=== PATIENT | male | born 1995 | race Caucasian/White ===

== ENCOUNTER 2018-02-12 20:34 | Emergency (ER) | payer BC ==
[2018-02-12 21:03] VITALS: BP 114/65
--- NOTE | 2018-02-12 21:26 | UC ---
Hand/Wrist HPI - HPI Summary HPI Summary: Playing bran in soccer dove out for a ball and had left hand kicked - History Of Current Complaint Chief Complaint: UCUpperExtremity Stated Complaint: LEFT THUMB INJURY Time Seen by Provider: 02/12/18 21:20 Hx Obtained From: Patient Onset/Duration: Sudden Onset, Lasting Hours - 2 Severity Initially: Moderate Severity Currently: Mild Pain Intensity: 3 Character Of Pain: Dull, Aching, Throbbing Aggravating Factor(s): Movement Alleviating Factor(s): Rest Associated Signs And Symptoms: Positive: Swelling Related History: Dominant Hand Left - Allergies/Home Medications Allergies/Adverse Reactions: Allergies Allergy/AdvReac Type Severity Reaction Status Date / Time No Known Allergies Allergy Verified 02/12/18 21:03 Home Medications: Home Medications NK [No Home Medications Reported] 02/12/18 [History Confirmed 02/12/18] PMH/Surg Hx/FS Hx/Imm Hx Previously Healthy: Yes - Surgical History Surgical History: None - Family History Known Family History: Positive: Cardiac Disease - Social History Occupation: Employed Full-time Lives: Alone Alcohol Use: None Substance Use Type: None Smoking Status (MU): Never Smoked Tobacco Review of Systems Musculoskeletal: Arthralgia - left CMC Is Patient Immunocompromised?: No All Other Systems Reviewed And Are Negative: Yes Physical Exam Triage Information Reviewed: Yes Appearance: Well-Appearing, Well-Nourished, Pain Distress - with exam of thumb Vital Signs: Initial Vital Signs Temp 98.6 F 02/12/18 20:56 Pulse 86 02/12/18 20:56 Resp 16 02/12/18 20:56 BP 114/65 02/12/18 20:56 Pulse Ox 99 02/12/18 20:56 Vital Signs Reviewed: Yes Eyes: Positive: Conjunctiva Clear Neck exam: Normal Respiratory Exam: Normal Cardiovascular Exam: Normal Musculoskeletal: Positive: Strength Limited @ - left thumb, ROM Limited @ - Left thumb, Other: - CMC seems unstable with palpation. Neurological Exam: Normal Psychological Exam: Normal Skin Exam: Normal Hand/Wrist Course/Dx - Differential Dx/Diagnosis Differential Diagnosis/HQI/PQRI: Contusion, Dislocation, Fracture, Sprain, Strain Provider Diagnoses: left 1st metacarpal displaced fracture. Discharge - Sign-Out/Discharge Documenting (check all that apply): Patient Departure All imaging exams completed and their final reports reviewed: No - Discharge Plan Condition: Stable Disposition: HOME Patient Education Materials: Hand Fracture (ED) Referrals: No Primary Care Phys,NOPCP [Primary Care Provider] - Teresa Borrego MD [Medical Doctor] - 1 Day (Please get seen tomorrow about the fracture ? dislocation.) Additional Instructions: Keep hand in the splint until you see Dr. Borrego - Rosa Disposition and Condition Condition: STABLE Disposition: Home
--- NOTE | 2018-02-13 08:06 | RAD ---
INDICATION: Left thumb hyperextension injury after being kicked during soccer game COMPARISON: None. TECHNIQUE: 4 views of the left hand were obtained. FINDINGS: There is a minimally displaced fracture at the proximal ulnar corner of the left thumb metacarpal with the fracture fragment displaced distally and in the palmar direction. Remaining visualized bones are intact and appropriately aligned. IMPRESSION: Minimally displaced fracture at the proximal pole of the left thumb metacarpal. R0
--- NOTE | 2018-02-13 09:46 | UC ---
- Progress Note Progress Note: Patient Name: REANNA CHATTERJEE Medical Record#: [id number] Ordering Physician: David Pacheco MD Acct.#: [id number] : 1995 Age: 23 Sex: M Location: URGENT [facility] Exam Date: 02/12/182121 ADM Status: [facility] ER Order Information: HAND - LEFT MINIMUM 3 VIEWS Accession Number: [id number] CPT: 77049 INDICATION: Left thumb hyperextension injury after being kicked during soccer game COMPARISON: None. TECHNIQUE: 4 views of the left hand were obtained. FINDINGS: There is a minimally displaced fracture at the proximal ulnar corner of the left thumb metacarpal with the fracture fragment displaced distally and in the palmar direction. Remaining visualized bones are intact and appropriately aligned. IMPRESSION: Minimally displaced fracture at the proximal pole of the left thumb metacarpal. R0 <Electronically signed by Mirza Gray MD in OV> 02/13/18801 Dictated By: Mirza Gray MD Dictated Date/Time: 02/13/18801 Transcribed Date/Time: 02/13/18799 Copy to: CC:David Pacheco MD; No Primary Care Phys,NOPCP Imaging - [facility] [address] [address] ph ([phone]) ph ([phone]) ph ([phone]) This report is only to be considered final once signed by the Provider(s) as displayed in the "<Electronically Signed by >" field (s). Absence of a signature indicates the report is in a draft status and still needs to be finalized. In the event this document was created by someone other than the signing Provider, the individual initiating the document will be listed in the "Entered by:" or "Dictated by:" parnell. 1 of 1 Discharge - Sign-Out/Discharge Documenting (check all that apply): Post-Discharge Follow Up All imaging exams completed and their final reports reviewed: Yes - Discharge Plan Condition: Stable Disposition: HOME Patient Education Materials: Hand Fracture (ED) Referrals: No Primary Care Phys,NOPCP [Primary Care Provider] - Teresa Borrego MD [Medical Doctor] - 1 Day (Please get seen tomorrow about the fracture ? dislocation.) Additional Instructions: Keep hand in the splint until you see Dr. Borrego - Billing Disposition and Condition Condition: STABLE Disposition: Home
== END 2018-02-12 22:02 | disposition home or self-care (01) ==
LOC: UCCORT 20:34
DX: S62.292A Other fracture of first metacarpal bone, left hand, initial encounter for closed fracture (principal); W21.02XA Struck by soccer ball, initial encounter; Y93.66 Activity, soccer; Y92.322 Soccer field as the place of occurrence of the external cause
CPT/HCPCS: 99201; G0463

== ENCOUNTER 2018-02-17 06:26 | Day surgery (SDC) | payer BC ==
--- NOTE | 2018-02-14 10:03 | HP ---
PREOPERATIVE HISTORY AND PHYSICAL: DATE OF ADMISSION/SURGERY: 02/17/18 DATE OF OFFICE VISIT/ENCOUNTER: 02/13/18 ATTENDING SURGEON: Teresa Borrego MD * (DICTATED BY GENI RIVERA) PROCEDURE: Left thumb metacarpal closed, possible open reduction internal fixation. CHIEF COMPLAINT: Left thumb fracture. HISTORY OF PRESENT ILLNESS: This is a 23-year-old male, who injured his left thumb playing soccer on 02/12/18. He was playing [email or web address] and he jammed his thumb. He was seen at the urgent care in [place] and had an x-ray that shows a displaced Krause fracture of his first metacarpal. He was placed in a thumb spica brace and was referred to Dr. Borrego for a followup. He denies any other injury. He denies any associated numbness or tingling. After evaluation and review of x-rays, he has consented to proceed with surgical intervention in the form of left thumb metacarpal closed, possible open reduction internal fixation. PAST MEDICAL HISTORY: Unremarkable. PAST SURGICAL HISTORY: Hernia repair as an . MEDICATIONS: None. ALLERGIES: No known drug allergies. FAMILY MEDICAL HISTORY: Cardiac disease and high cholesterol. 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 He denies tobacco use, recreational drug use, and does not drink alcohol. REVIEW OF SYSTEMS: Negative for general, cephalic, cardiovascular, respiratory , GI, , other musculoskeletal, integumentary, endocrine, neurologic, and hematologic symptoms. Infectious Disease: Negative for MRSA, hepatitis C, and HIV. PHYSICAL EXAMINATION GENERAL: Well-developed, well-nourished, 23-year-old male, in no acute distress. VITAL SIGNS: Height 6 feet 3 inches, weight 183 pounds. Pulse rate 48, blood pressure 132/78. HEENT: Normocephalic, atraumatic. Pupils are equal, round, and reactive to light and accommodation. Extraocular movements are intact. Throat is clear. NECK: Supple. No palpable lymph nodes. PULMONARY: Lungs are clear to auscultation bilaterally. No wheezes, rales, or rhonchi. CARDIOVASCULAR: Regular rate and rhythm. S1, S2. No murmurs, rubs, or gallops. No edema. ABDOMEN: Positive bowel sounds. Soft, nontender. NEUROLOGICAL: Alert and oriented x3. Cranial nerves II through XII are intact. Sensation is intact to light touch. MUSCULOSKELETAL: On exam of his left hand, there is visible swelling and ecchymosis around the base of the thumb. He has active flexion and extension of the thumb. Tenderness to palpation at the base of the thumb. Skin is intact. Neurovascular function is intact. IMAGING STUDIES: X-rays, AP, lateral, and oblique of the left thumb show a displaced fracture at the base of the first metacarpal. IMPRESSION: Left first metacarpal base fracture, displaced. PLAN: The patient is scheduled to undergo a left thumb metacarpal closed, possible open reduction internal fixation with Dr. Borrego on 02/17/18. He will return to the office 10 days postop for followup and suture removal. A prescription for [place] was e-scribed to the patient's pharmacy for postoperative pain management. A prescription for Keflex was e-scribed to the patient's pharmacy for postoperative infection prophylaxis. GENI RIVERA [id number]/[facility] #: [id number] MEERA
[~2018-02-17 06:26] MED LIST: Acetaminophen TAB* 325 MG PO ONE; Buffered Lidocaine 0.9% SYRIN* 5 ML/SYR SYRINGE INTRADERM ONE
[2018-02-17] MEDS ORDERED: Acetaminophen TAB* 325 MG ONE (06:33)
[2018-02-17] MEDS ORDERED: ceFAZolin 2 GM in NS PREMIX(*) 2 GM/100 ML BAG IVPB ONE (06:33)
[2018-02-17] MEDS ORDERED: fentaNYL* 50 MCG/ML 2 ML VIAL (100 MCG VIAL) ONE ×2 (07:17→07:53)
[2018-02-17] MEDS ORDERED: Midazolam* 1 MG/ML 2 ML VIAL (2 MG) ONE (07:17)
[2018-02-17] MEDS ORDERED: Lidocaine 1% INJ* 10 MG/ML 30 ML SDV ONE (07:23)
[2018-02-17] MEDS ORDERED: Famotidine IV* 10 MG/ML 2 ML (20 mg) ONE (07:30)
[2018-02-17] MEDS ORDERED: Dexamethasone IV* 4 MG/ML 1 ML (4 MG) ONE (07:53)
[2018-02-17] MEDS ORDERED: Propofol* 10 MG/ML 20 ML BTL IV PUSH ONE (07:53)
[2018-02-17] MEDS ORDERED: Ketorolac INJ* 30 MG/ML 1 ML VIAL ONE (07:53)
[2018-02-17] MEDS ORDERED: Lidocaine 2% PF * 5 ML VIAL ONE (07:53)
[2018-02-17] MEDS ORDERED: HYDROcodone/ACETAMIN 5-325 MG* 1 TAB PO PRN ×2 (07:56)
[2018-02-17] MEDS ORDERED: fentaNYL* 50 MCG/ML 2 ML VIAL (100 MCG VIAL) IV PRN (07:56)
[2018-02-17] MEDS ORDERED: Naloxone* 0.4 MG/ML 1 ML VIAL IV PRN (07:56)
[2018-02-17] MEDS ORDERED: DiMENhydriNATE IV* 50 MG/ML VIAL IV PUSH PRN (07:56)
[2018-02-17] MEDS ORDERED: PROCHLORPERAZINE INJ 5 MG/ML 2 ML VIAL IV PRN (07:56)
[2018-02-17] MEDS ORDERED: Ondansetron INJ* 2 MG/ML VIAL IV PRN (07:56)
[2018-02-17 09:01] VITALS: BP 125/67
--- NOTE | 2018-02-17 11:25 | OP ---
DATE OF OPERATION: 02/17/18 [facility] DATE OF : [birth year] SURGEON: Teresa Borrego MD CREAM SEPARATOR OPERATOR: GENI Foreman ANESTHESIA: Local MAC. PRE-OP DIAGNOSIS: Fracture, subluxation of left thumb metacarpal. POST-OP DIAGNOSIS: Fracture, subluxation of left thumb metacarpal. OPERATIVE PROCEDURE: Closed reduction, pinning, left thumb metacarpal. INDICATIONS: Dominick is a 23-year-old male who injured his left thumb playing soccer. He has a Krause fracture and the shaft of the metacarpal is subluxed from the CMC joint. He presents for closed reduction, possible open reduction and pinning. ESTIMATED BLOOD LOSS: Zero. DESCRIPTION OF PROCEDURE: The patient was brought to the operating room and was given a sedation anesthetic and a local infiltration of 10 cc of 1% plain lidocaine. The skin of his left upper extremity was prepped and draped in usual sterile fashion. The fracture was manipulated with traction and then three 0.045- inch K-wires were driven through the main fragment of the metacarpal, 2 into the articular fragment, and 1 across the CMC joint. The position of the hardware and fracture fragment was checked on the C-arm in the AP and lateral views and found to be satisfactory. The pins were bent and cut and dressed with Xeroform, 4x4, Webril, and a thumb spica splint. The patient tolerated the procedure well and was brought to the recovery room in good condition. [id number]/[facility] #: [id number] MTDD
--- NOTE | 2018-02-17 15:14 | RAD ---
INDICATION: LEFT thumb percutaneous pinning. Intra-articular fracture base of the first metacarpal. Technique: 2 minutes 22 seconds of?fluoroscopy?was provided?for the physician proceduralist. REPORT: Spot images document percutaneous fixation wires extending across the base of the first metacarpal and first carpal metacarpal joint. IMPRESSION: Procedural control films. CPT II Codes: G9500
== END 2018-02-17 08:47 | disposition home or self-care (01) ==
LOC: OREAST 06:26
PROVIDERS: ATTEND Orthopaedic Surgery
DX: S62.212A Bennett's fracture, left hand, initial encounter for closed fracture (principal); E78.00 Pure hypercholesterolemia, unspecified; X58.XXXA Exposure to other specified factors, initial encounter; Y93.66 Activity, soccer
CPT/HCPCS: 76000; A9270-GY; C1776; J0690; J1100; J1885; J2250; J2704; J3010

== ENCOUNTER 2019-05-24 18:57 | Emergency (ER) | payer BC, OTHER ==
--- OUTSIDE RECORDS SUMMARY | 2019-05-24 19:02 | XMS REPORT | Continuity of Care Document ---
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 Problems Provider Date Shoulder joint pain GENI Onofre Onset: 03/27/2019 Benign exertional headache GENI Onofre Onset: 03/27/2019 Social History Type Date Description Comments Sex Unknown Tobacco Use Start: Unknown Never Smoked Cigarettes Smoking Status Reviewed: 03/21/19 Never Smoked Cigarettes ETOH Use Never used alcohol Tobacco Use Start: Unknown Patient has never smoked Recreational Drug Use Never Used Drugs Exercise Type/Frequency Exercises regularly Allergies, Adverse Reactions, Alerts Description No Known Drug Allergies Medications Description No Active Medications Immunizations CPT Code Status Date Vaccine Reaction Lot # [id number] Given 12/12/2012 Tdap - Tetanus/Diptheria/Acellular Pertussis 05155 Given 09/24/2011 Meningococcal Immunization 22391 Given 12/01/2009 Hepatitis A Vaccine Pediatric/Adolescent Dosage 2 Dose Schedule 95856 Given 10/23/2008 Varicella (Chicken Pox) Immunization 47906 Given 10/23/2008 Hepatitis A Vaccine Pediatric/Adolescent Dosage 2 Dose Schedule 81742 Given 11/29/2007 Meningococcal Immunization 20812 Given 11/29/2007 Tdap - Tetanus/Diptheria/Acellular Pertussis 32623 Given 08/18/1999 Hep B Pediatric/Adolescent 20721 Given 11/06/1998 Varicella (Chicken Pox) Immunization 89756 Given 11/06/1998 IPV/Poliomyelitis Immunization 72513 Given 11/06/1998 Measles Mumps And Rubella MMR 69509 Given 04/25/1995 DTaP Vaccine Younger Than 7 tetramune 94489 Given 04/25/1995 Measles Mumps And Rubella MMR 06517 Given 04/25/1995 IPV/Poliomyelitis Immunization 20851 Given 02/10/1995 Hep B Pediatric/Adolescent 31673 Given 1994 DTaP Vaccine Younger Than 7 93030 Given 1994 DTaP Vaccine Younger Than 7 tetramune 77280 Given 1994 Hib PRP-T Conjugate 4 Dose Schedule tetramune 47501 Given 1994 IPV/Poliomyelitis Immunization 75994 Given 1994 DTaP Vaccine Younger Than 7 44119 Given 1994 Hep B Pediatric/Adolescent 69190 Given 1994 IPV/Poliomyelitis Immunization 55988 Given 1994 DTaP Vaccine Younger Than 7 Vital Signs Date Vital Result Comment 03/27/2019 9:56am Weight 189.00 lb 03/23/2019 9:42am Height 76 inches 6'4" Weight 189.00 lb Heart Rate 62 /min BP Systolic Sitting 119 mmHg BP Diastolic Sitting 62 mmHg Respiratory Rate 16 /min Body Temperature 98.6 F Pain Level 0 at rest O2 % BldC Oximetry 99 % BMI (Body Mass Index) 23.0 kg/m2 Results Test Acquired Date Facility Test Result H/L Range Note Basic Metabolic 03/23/2019 [facility] Sodium 141 mmol/L Normal 135-[address] [place] [address] [phone] Potassium 3.9 mmol/L Normal 3.5-5.0 Chloride 105 mmol/L Normal 101-111 Co2 Carbon Dioxide 27 mmol/L Normal 22-32 Anion Gap 9 mmol/L Normal 2-11 Glucose 98 mg/dL Normal 70-100 Blood Urea Nitrogen 14 mg/dL Normal 6-24 Creatinine 0.88 mg/dL Normal 0.67-1.17 BUN/Creatinine Ratio 15.9 Normal 8-20 Calcium 9.7 mg/dL Normal 8.6-10.3 Egfr Non- 105.5 >60 Egfr 127.7 >60 1 CBC Auto 03/23/2019 [facility] White Blood 3.9 10^3/uL Normal 3.5-10.[address] [place] [address] [phone] Red Blood Count 4.84 10^6/uL Normal 4.18-5.48 Hemoglobin 15.9 g/dL Normal 14.0-18.0 Hematocrit 46 % Normal 42-52 Mean Corpuscular Volume 95 fL High 80-94 Mean Corpuscular Hemoglobin 33 pg High 27-31 Mean Corpuscular HGB Conc 35 g/dL Normal 31-36 Red Cell Distribution Width 13 % Normal 10-15 Platelet Count 185 10^3/uL Normal 150-450 Mean Platelet Volume 9.8 fL Normal 7.4-10.4 Abs Neutrophils 2.6 10^3/uL Normal 1.5-7.7 Abs Lymphocytes 0.8 10^3/uL Low 1.0-4.8 Abs Monocytes 0.4 10^3/uL Normal 0-0.8 Abs Eosinophils 0.1 10^3/uL Normal 0-0.6 Abs Basophils 0.0 10^3/uL Normal 0-0.2 Abs Nucleated RBC 0.0 10^3/uL Granulocyte % 66.3 % Lymphocyte % 20.3 % Monocyte % 11.4 % Eosinophil % 1.7 % Basophil % 0.3 % Nucleated Red Blood Cells % 0.0 Liver Function 03/23/2019 [facility] Total Protein 6.8 g/dL Normal 6.4-8.9 Panel [address] [place] [address] [phone] Albumin 4.9 g/dL Normal 3.2-5.2 Globulin 1.9 g/dL Low 2-4 Albumin/Globulin Ratio 2.6 Normal 1-3 Total Bilirubin 0.50 mg/dL Normal 0.2-1.0 Direct Bilirubin 0.10 mg/dL Normal 0.03-0.18 Indirect Bilirubin 0.4 mg/dL Normal 0.3-1.0 Alkaline Phosphatase 95 U/L Normal 34-104 Alt 38 U/L Normal 7-52 Ast 29 U/L Normal 13-39 Lipid Profile 03/23/2019 [facility] Triglycerides 45 mg/dL 2 (Trig/Chol/HDL) [address] [place] [address] [phone] Cholesterol 112 mg/dL 3 HDL Cholesterol 51.1 mg/dL 4 LDL Cholesterol 52 mg/dL 5 1 Because ethnic data is not always readily available, this report includes an eGFR for both -Americans and non- Americans. The National Kidney Disease Education Program (NKDEP) does not endorse the use of the MDRD equation for patients that are not between the ages of 18 and 70, are , have extremes of body size, muscle mass, or nutritional status, or are non- or non-. According to the National Kidney Foundation, irrespective of diagnosis, the stage of the disease is based on the level of kidney function: Stage Description GFR(mL/min/1.73 m(2)) 1 Kidney damage with normal or decreased GFR 90 2 Kidney damage with mild decrease in GFR 60-89 3 Moderate decrease in GFR 30-59 4 Severe decrease in GFR 15-29 5 Kidney failure <15 (or dialysis) 2 Desirable: <150 Borderline High: 150-199 High: 200-499 Very High: >500 3 Desirable: <200 Borderline High: 200-239 High: >239 4 Low: <40 Desirable: 40-60 High: >60 5 Desirable: <100 Near Optimal: 100-129 Borderline High: 130-159 High: 160-189 Very High: >189 Procedures Date Code Description Status 03/23/2019 60588 Rad Shoulder Comp, Min. 2 Views Completed Medical Devices Description No Information Available Encounters Description No Information Available Assessments Date Code Description Provider 03/23/2019 M75.82 Other shoulder lesions, left shoulder Rich Coyne MD 03/23/2019 M25.512 Pain in left shoulder Rich Coyne MD 03/21/2019 Z00.01 Encounter for general adult medical examination GENI Onofre with abnormal findings 03/21/2019 M25.512 Pain in left shoulder GENI Onofre 03/21/2019 G44.84 Primary exertional headache GENI Onofre Plan of Treatment Future Appointment(s):03/24/2020 9:30 am - GENI Onofre at [facility] Functional Status Functional Condition Comment Date Status Glasses Active Mental Status Description No Information Available Referrals Refer to Reason for Referral Status Appt Date Rich Coyne MD Sent 03/23/2019 [facility] [place] [address] [phone]
[2019-05-24 19:43] VITALS: BP 132/54
--- NOTE | 2019-05-24 20:51 | UC ---
Lower Extremity/Ankle HPI - HPI Summary HPI Summary: Patient is a 24yo male presenting with left middle toe pain since yesterday after he stubbed his toe on his boot. Patient states he james taped it but while walking around at work today he noticed that is not feeling any better. Denies pain at rest. Does note bruising and swelling. Denies foot pain. Denies numbness and tingling. Denies decreased range of motion. - History of Current Complaint Chief Complaint: UCLowerExtremity Stated Complaint: LEFT MIDDLE TOE INJURY Hx Obtained From: Patient Pain Intensity: 0 - Allergies/Home Medications Allergies/Adverse Reactions: Allergies Allergy/AdvReac Type Severity Reaction Status Date / Time No Known Allergies Allergy Verified 05/24/19 19:37 PMH/Surg Hx/FS Hx/Imm Hx Previously Healthy: Yes - Surgical History Surgical History: Yes Surgery Procedure, Year, and Place: LEFT INGUINAL HERNIA 1995 [place]. LEFT thumb 2018 - Family History Known Family History: Positive: Cardiac Disease - Social History Alcohol Use: None Substance Use Type: None Smoking Status (MU): Never Smoked Tobacco Have You Smoked in the Last Year: No Review of Systems All Other Systems Reviewed And Are Negative: No Constitutional: Positive: Negative Skin: Positive: Bruising - L middle toe Respiratory: Positive: Negative Cardiovascular: Positive: Negative Musculoskeletal: Positive: Arthralgia - L middle toe, Edema - L middle toe. Negative: Decreased ROM Neurological: Negative: Paresthesia, Numbness Physical Exam Triage Information Reviewed: Yes Appearance: Well-Appearing, No Pain Distress, Well-Nourished Vital Signs: Initial Vital Signs Temp 98.4 F 05/24/19 19:37 Pulse 56 05/24/19 19:37 Resp 16 05/24/19 19:37 BP 132/54 05/24/19 19:37 Pulse Ox 100 05/24/19 19:37 Vital Signs Reviewed: Yes Eyes: Positive: Conjunctiva Clear ENT: Positive: Hearing grossly normal Neck: Positive: Supple Respiratory: Positive: No respiratory distress Cardiovascular: Positive: Brisk Capillary Refill - <2 sec Musculoskeletal: Positive: ROM Intact - flexion/extension left toes equal and full, No Edema, Other: - mild tenderness to palpation of L middle toe Neurological Exam: Other - sensation grossly intact Neurological: Positive: Alert Psychological: Positive: Age Appropriate Behavior Skin: Positive: Other - ecchymosis of dorsal aspect of distal phalanx of L middle toe Diagnostics - Radiology L middle toe Radiology Interpretation Completed By: ED Physician - neg fx Lower Extremity Course/Dx - Course Course Of Treatment: Discussed initial negative rate of radiographs with patient. Informed him that final report weakened in the morning and he will be notified with any abnormalities not discussed tonight. Instructed to continue with james taping. Patient declined postop shoe. Instructed to continue with rest, ice, and OTC analgesics. Instructed to follow-up with sports medicine if pain does not resolve within 1-2 weeks. Patient voiced understanding and agreed with the treatment plan. - Differential Dx/Diagnosis Differential Diagnosis/HQI/PQRI: Fracture (Closed) Provider Diagnosis: Contusion of middle toe Discharge ED - Sign-Out/Discharge Documenting (check all that apply): Patient Departure All imaging exams completed and their final reports reviewed: No - Discharge Plan Condition: Stable Disposition: HOME Patient Education Materials: Contusion in Adults (ED) Referrals: [facility] [Outside] - If Needed Additional Instructions: As discussed, your radiograph was reviewed by the provider that treated you tonight. It will be read by a radiologist tomorrow morning. If there is a finding other than that discussed with you today, you will receive a call from a care provider. You may continue to james tape the toe. Rest, ice, and elevate to help alleviate pain. You may also take over the counter pain medications as directed. Follow up with your pcp or the orthopedic referral listed below if pain does not resolve within 1-2 weeks. - Billing Disposition and Condition Condition: STABLE Disposition: Home - Attestation Statements Provider Attestation: Patient not seen by me I was available for consult Chart reviewed RAINA
--- NOTE | 2019-05-25 22:10 | UC ---
- Progress Note Progress Note: Final radiologist reading of left third toe x-ray from May 24, 2019 is no fracture. Provider interpretation same bit of the same therefore there is no discrepancy. Course/Dx - Diagnoses Provider Diagnoses: Contusion of middle toe Discharge ED - Sign-Out/Discharge Documenting (check all that apply): Patient Departure All imaging exams completed and their final reports reviewed: Yes - Discharge Plan Condition: Stable Disposition: HOME Patient Education Materials: Contusion in Adults (ED) Referrals: [facility] [Outside] - If Needed Additional Instructions: As discussed, your radiograph was reviewed by the provider that treated you tonight. It will be read by a radiologist tomorrow morning. If there is a finding other than that discussed with you today, you will receive a call from a care provider. You may continue to james tape the toe. Rest, ice, and elevate to help alleviate pain. You may also take over the counter pain medications as directed. Follow up with your pcp or the orthopedic referral listed below if pain does not resolve within 1-2 weeks. - Billing Disposition and Condition Condition: STABLE Disposition: Home
== END 2019-05-24 21:34 | disposition home or self-care (01) ==
LOC: UCCORT 18:57
DX: S90.122A Contusion of left lesser toe(s) without damage to nail, initial encounter (principal); W22.8XXA Striking against or struck by other objects, initial encounter; Y92.9 Unspecified place or not applicable
CPT/HCPCS: 99211; G0463